=== PATIENT | male | born 2005 | race Caucasian/White ===

== ENCOUNTER 2023-11-28 07:48 | Emergency (ER) | payer OTHER ==
[~2023-11-28] VITALS: Ht 182.9 cm; Wt 68.9 kg
[2023-11-28 09:19] VITALS: BP 117/73; TEMP 97.1; O2SAT 99
[2023-11-28] MEDS ORDERED: AMOX875T2 PO (12:25)
[2023-11-28] MEDS ORDERED: CYCL-707 PO (12:33)
[2023-11-28] MEDS ORDERED: NAPR-837 PO (12:33)
[2023-11-28] MEDS: AUGMENTIN 875 MG TAB PO ONE (12:41)
== END 2023-11-28 12:43 | disposition home or self-care (01) ==
LOC: M ED 07:48
DX: J02.0 Streptococcal pharyngitis (principal); S89.91XA Unspecified injury of right lower leg, initial encounter; V49.40XA Driver injured in collision with unspecified motor vehicles in traffic accident, initial encounter; Y92.410 Unspecified street and highway as the place of occurrence of the external cause; Y93.89 Activity, other specified; Y99.9 Unspecified external cause status; Z79.2 Long term (current) use of antibiotics; Z79.899 Other long term (current) drug therapy